=== PATIENT | male | born 1975 | race Hispanic/Latino ===

== ENCOUNTER 2019-06-07 17:43 | Emergency (ER) | payer SELFPAY ==
[2019-06-07 18:36] LABS: Bilirubin Negative (Negative); Blood, Urine Moderate (Negative); Clarity Opaque (Clear); Glucose, Urine (Dipstick) >=1000 mg/dL (Negative); Leukocyte Small (Negative); Nitrite Negative (Negative); Protein, Urine (Dipstick) 30 mg/dL (Neg-Trace)
[2019-06-07 18:52] LABS: WBC/HPF Greater Than 50 HPF (0-3)
[2019-06-07 18:53] LABS: Bacteria/HPF 3+ HPF (None Seen); Squamous Epithelial 0-3 HPF (0-3)
[2019-06-07] MEDS ORDERED: Ketorolac Tromethamine 30 MG/ML VIAL ONE (20:48)
[2019-06-10 22:20] LABS: Chlam.trachomatis by PCR,Urine Inconclusive (NotDetected)
== END 2019-06-07 20:53 | disposition home or self-care (01) ==
LOC: ERS 17:43
DX: N39.0 Urinary tract infection, site not specified (principal); E11.9 Type 2 diabetes mellitus without complications; I10 Essential (primary) hypertension; E78.00 Pure hypercholesterolemia, unspecified
CPT/HCPCS: 81003; 81015; 87077; 87086; 87186; 87491; 87591; 99283; J1885

== ENCOUNTER 2019-06-10 20:14 | Emergency (ER) | payer SELFPAY ==
[2019-06-10 20:59] LABS: Bilirubin Negative (Negative); Blood, Urine Negative (Negative); Clarity Clear (Clear); Glucose, Urine (Dipstick) Greater than 1000 mg/dL (Negative); Leukocyte 500 Leu/uL (Negative); Mucous/LPF Rare LPF (<2+); Nitrite Negative (Negative); Protein, Urine (Dipstick) 30 mg/dL (Neg-Trace); Squamous Epithelial None Seen HPF (0-3); Urobilinogen 3 mg/dL (Less than 2); WBC/HPF Greater than 50 HPF (0-3)
[2019-06-10 21:08] LABS: Bacteria/HPF 3+ HPF (None Seen)
[2019-06-10 23:12] LABS: #Eosinphils 0.1 thou/uL (0.0-0.7); #Lymphocytes 1.7 thou/uL (1.20-3.40); #Monocytes 1.3 thou/uL (0.11-0.59); #Neutrophils 9.7 thou/uL (1.40-6.50); %Basophils 0.3 % (0.0-1.0); %Eosinophils 0.6 % (0.0-10.0); %Lymphocytes 13.1 % (21.0-51.0); %Monocytes 10.1 % (0.0-10.0); %Neutrophils 75.9 % (42.0-75.0); Hemoglobin 13.4 g/dL (14.0-18.0); Mean Corpuscular HGB CONC 34.2 g/dL (32.0-36.0); Mean Corpuscular Hemoglobin 32.7 pg (27.0-31.0); Mean Corpuscular Volume 95.6 fL (78.0-98.0); Mean Platelet Volume 8.7 fL (7.4-10.4); Platelet Count 144 thou/uL (130-400); RBC Distribution Width 10.6 % (11.5-14.5); Red Blood Cell (RBC) Count 4.08 mill/uL (4.70-6.10); White Blood Cell (WBC) Count 12.8 thou/uL (4.8-10.8)
--- NOTE | 2019-06-10 23:25 | CT ---
CT Stone Protocol HISTORY: Suprapubic pain and inability to empty bladder COMPARISON: None. FINDINGS: The lung bases are clear of infiltrative process. A 3 mm left lower lobe pulmonary nodule i s incidentally identified. The liver spleen pancreas and gallbladder regions show no focal findings. Right and left adrenal glands are normal in appearance right and left kidneys are normal in size ther e is a mild bilateral hydronephrosis this is associated with a distended bladder. Prostate appears enlarged. There is no significant periaortic or mesenteric adenopathy. The appendix is normal in appearance. No significant pelvic lymphadenopathy or mass. IMPRESSION: Mild bilateral hydronephrosis associated with a moderately distended bladder and enlarged appearing prostate.
[2019-06-10 23:38] LABS: ALT (SGPT) 40 U/L (8-55); AST (SGOT) 31 U/L (5-34); Albumin 3.4 g/dL (3.5-5.0); Alkaline Phosphatase 122 U/L (40-150); Anion Gap 13 mmol/L (10-20); BUN (Urea Nitrogen) 19 mg/dL (8.9-20.6); Bilirubin, Total 0.6 mg/dL (0.2-1.2); CK (CPK) 18 U/L (30-200); Calc. Creatinine Clearance 0 mL/min (70-130); Calcium 9.5 mg/dL (7.8-10.44); Carbon Dioxide 25 mmol/L (22-29); Chloride 99 mmol/L (98-107); Estimated GFR-MDRD 75; Globulin 4.7 g/dL (2.4-3.5); Glucose 304 mg/dL (70-105); Potassium 4.4 mmol/L (3.5-5.1); Protein, Total 8.1 g/dL (6.0-8.3); Sodium 133 mmol/L (136-145)
[2019-06-11] MEDS ORDERED: Acetaminophen 500 MG TAB ONE (00:03)
== END 2019-06-11 00:45 | disposition home or self-care (01) ==
LOC: ERS 20:14
DX: N39.0 Urinary tract infection, site not specified (principal); E11.9 Type 2 diabetes mellitus without complications; I10 Essential (primary) hypertension; E78.00 Pure hypercholesterolemia, unspecified; Z79.899 Other long term (current) drug therapy
CPT/HCPCS: 36415; 51702; 74176; 80053; 81003; 81015; 82550; 85025

== ENCOUNTER 2019-06-17 11:06 | Emergency (ER) | payer SELFPAY ==
[2019-06-17 11:43] LABS: Bilirubin Negative (Negative); Blood, Urine Trace (Negative); Clarity Clear (Clear); Glucose, Urine (Dipstick) Greater than 1000 mg/dL (Negative); Leukocyte 25 Leu/uL (Negative); Nitrite Negative (Negative); Protein, Urine (Dipstick) 30 mg/dL (Neg-Trace); RBC/HPF 0-3 HPF (0-3); Squamous Epithelial 0-3 HPF (0-3); Urobilinogen 3 mg/dL (Less than 2)
[2019-06-17 11:46] LABS: Bacteria/HPF 1+ HPF (None Seen)
[2019-06-17 11:56] LABS: #Eosinphils 0.1 thou/uL (0.0-0.7); #Lymphocytes 2.1 thou/uL (1.20-3.40); #Monocytes 0.8 thou/uL (0.11-0.59); #Neutrophils 8.9 thou/uL (1.40-6.50); %Basophils 0.3 % (0.0-1.0); %Lymphocytes 17.3 % (21.0-51.0); %Monocytes 6.8 % (0.0-10.0); %Neutrophils 74.6 % (42.0-75.0); Hemoglobin 13.4 g/dL (14.0-18.0); Mean Corpuscular Hemoglobin 33.1 pg (27.0-31.0); Mean Corpuscular Volume 94.5 fL (78.0-98.0); Mean Platelet Volume 8.1 fL (7.4-10.4); Platelet Count 205 thou/uL (130-400); RBC Distribution Width 10.5 % (11.5-14.5); Red Blood Cell (RBC) Count 4.04 mill/uL (4.70-6.10); White Blood Cell (WBC) Count 11.9 thou/uL (4.8-10.8)
[2019-06-17 12:23] LABS: ALT (SGPT) 97 U/L (8-55); AST (SGOT) 49 U/L (5-34); Albumin 3.3 g/dL (3.5-5.0); Alkaline Phosphatase 137 U/L (40-150); Anion Gap 14 mmol/L (10-20); BUN (Urea Nitrogen) 16 mg/dL (8.9-20.6); Bilirubin, Total 0.8 mg/dL (0.2-1.2); Calc. Creatinine Clearance 0 mL/min (70-130); Calcium 9.6 mg/dL (7.8-10.44); Carbon Dioxide 26 mmol/L (22-29); Chloride 93 mmol/L (98-107); Estimated GFR-MDRD Greater than 90; Globulin 5.5 g/dL (2.4-3.5); Glucose 325 mg/dL (70-105); Potassium 4.5 mmol/L (3.5-5.1); Protein, Total 8.8 g/dL (6.0-8.3); Sodium 128 mmol/L (136-145)
[2019-06-17 13:17] LABS: Bicarbonate (HCO3v) 28.1 mmol/L (22.0-28.0); CO2 Tension (PvCO2) 48.9 mmHg (40.0-50.0); Calcium, Ionized 1.17 mmol/L (See Comments:); Chloride 97 mmol/L (98-107); Hemoglobin - Calc 13.3 g/dL (14.0-18.0); Potassium 4.3 mmol/L (3.5-5.1); Sodium 134 mmol/L (138-145); T. Carbon Dioxide 29.6 mmol/L (22.0-28.0); vO2 Saturation-calc 41.1 % (60.0-85.0)
== END 2019-06-17 13:18 | disposition home or self-care (01) ==
LOC: ERS 11:06
DX: E11.65 Type 2 diabetes mellitus with hyperglycemia (principal); I10 Essential (primary) hypertension; E78.00 Pure hypercholesterolemia, unspecified
CPT/HCPCS: 36415; 36416; 80053; 81003; 81015; 82330; 82803; 83690; 85025; 87077; 87086; 87186; 96360

== ENCOUNTER 2019-07-31 08:57 | Emergency (ER) | payer SELFPAY ==
[2019-07-31] MEDS ORDERED: Morphine 4 MG/ML VIAL ONE (09:34)
[2019-07-31] MEDS ORDERED: Ondansetron PF 4 MG/2 ML Vial ONE (09:34)
--- NOTE | 2019-07-31 09:55 | ULT ---
TESTICULAR ULTRASOUND: Date: 07/31/19 INDICATION: Right testicular pain and swelling. FINDINGS: Both testicles exhibit a normal sonographic appearance. Color Doppler and spectral analysis demonstra sanket blood flow to both testicles. There are small bilateral hydroceles, larger on the right. Right epididymis is slightly prominent. Th ere is increased blood flow to the right epididymis which may indicate epididymitis. IMPRESSION: 1. Both testicles show normal blood flow with color Doppler and spectral analysis. 2. Slightly prominent right epididymis with increased blood flow suggesting epididymitis. 3. Bilateral hydroceles, slightly larger on the right. POS: [facility]
[2019-07-31] MEDS ORDERED: cefTRIAXone\\ROCEPHIN 1 GM VIAL ONE (10:09)
[2019-07-31 10:19] LABS: Bilirubin Negative (Negative); Blood, Urine Negative (Negative); Clarity Clear (Clear); Glucose, Urine (Dipstick) 30 mg/dL (Negative); Leukocyte Negative Leu/uL (Negative); Nitrite Negative (Negative); Protein, Urine (Dipstick) 20 mg/dL (Neg-Trace); Urobilinogen Normal mg/dL (Less than 2)
== END 2019-07-31 11:10 | disposition home or self-care (01) ==
LOC: ERS 08:57
DX: N45.1 Epididymitis (principal); N43.3 Hydrocele, unspecified; E11.9 Type 2 diabetes mellitus without complications; I10 Essential (primary) hypertension; E78.00 Pure hypercholesterolemia, unspecified; Z79.84 Long term (current) use of oral hypoglycemic drugs; Z79.899 Other long term (current) drug therapy
CPT/HCPCS: 76870; 81003; 87086; 93976; 96361; 96365; 96375; J0696; J2270; J2405

== ENCOUNTER 2024-11-05 09:36 | Outpatient (CLI) | payer OTHER | END 2024-11-05 09:37 | disposition home or self-care (01) | LOC: BICRAD 09:36 | PROVIDERS: ATTEND Family Medicine | DX: R76.12 Nonspecific reaction to cell mediated immunity measurement of gamma interferon antigen response without active tuberculosis (principal) | CPT/HCPCS: 71046 ==